=== PATIENT | male | born 1980 | race Two or more races ===

== ENCOUNTER 2022-10-07 06:50 | Emergency (ER) | payer MEDICAID ==
[~2022-10-07] VITALS: Ht 180.3 cm; Wt 91.5 kg
[2022-10-07 08:52] VITALS: BP 131/88
[2022-10-07] MEDS ORDERED: HYDROcodone-ACET 10/325MG TAB PO ONE (09:00)
[2022-10-07] MEDS ORDERED: IBUP800T26 PO (09:19)
[2022-10-07] MEDS ORDERED: HYDR-4902 PO (09:20)
== END 2022-10-07 09:22 | disposition home or self-care (01) ==
LOC: ER 06:50
DX: S30.0XXA Contusion of lower back and pelvis, initial encounter (principal); W00.0XXA Fall on same level due to ice and snow, initial encounter; Y93.89 Activity, other specified; Y92.89 Other specified places as the place of occurrence of the external cause; Y99.8 Other external cause status